=== PATIENT | female | born 1985 | race Two or more races ===

== ENCOUNTER 2021-04-10 18:56 | Emergency (ER) | payer MEDICAID ==
[~2021-04-10] VITALS: Ht 165.1 cm; Wt 50.0 kg
[2021-04-10] MEDS ORDERED: DIPHENHYDRAMINE HCL/ZINC ACET 28 GM CREAM TOP STA (19:20)
[2021-04-10] MEDS ORDERED: FAMOTIDINE 20MG TABLET PO ONE (19:30)
[2021-04-10 20:56] VITALS: BP 138/82
== END 2021-04-10 20:57 | disposition home or self-care (01) ==
LOC: ER 18:56
DX: L25.8 Unspecified contact dermatitis due to other agents (principal); I48.91 Unspecified atrial fibrillation
CPT/HCPCS: 99283

== ENCOUNTER 2022-06-17 19:31 | Emergency (ER) | payer MEDICAID | END 2022-06-17 21:35 | disposition left against medical advice (07) | LOC: ER 19:31 | DX: Z53.21 Procedure and treatment not carried out due to patient leaving prior to being seen by health care provider (principal) ==